=== PATIENT | male | born 1995 | race Hispanic/Latino ===

== ENCOUNTER 2024-04-06 13:19 | Emergency (ER) | payer SELFPAY ==
[2024-04-06] MEDS ORDERED: Bacitracin 1 PK ONE (14:09)
[2024-04-06] MEDS ORDERED: Acetaminophen 500 MG TAB ONE (14:10)
[2024-04-06] MEDS ORDERED: Boostrix 0.5 ML (Tdap) VIAL (>/=7 yrs of age) ONE (14:10)
[2024-04-06 14:12] LABS: Bilirubin Small (Negative); Blood, Urine Trace (Negative); Glucose, Urine (Dipstick) Negative (Negative); Ketone, Urine Negative (Negative); Leukocyte Negative (Negative); Nitrite Negative (Negative); Protein, Urine (Dipstick) Trace mg/dL (Neg-Trace); Specific Gravity, Urine 1.025 (1.005-1.030); pH, Urine 6.5 (5.0-9.0)
[2024-04-06 14:13] LABS: Clarity Hazy (Clear)
[2024-04-06 14:14] LABS: Bacteria/HPF Rare-Few HPF (None Seen); CAUTI Indications for Culture Pelvic or flank pain; RBC/HPF 0-3 HPF (0-3); Squamous Epithelial 0-3 HPF (0-3); WBC/HPF 0-3 HPF (0-3)
[2024-04-06 14:15] LABS: Urine Culture Reflex No No
== END 2024-04-06 14:49 | disposition home or self-care (01) ==
LOC: MADERS 13:19
DX: S30.1XXA Contusion of abdominal wall, initial encounter (principal); F17.200 Nicotine dependence, unspecified, uncomplicated; W19.XXXA Unspecified fall, initial encounter; Z23 Encounter for immunization
CPT/HCPCS: 81001; 90471; 90715